=== PATIENT | male | born 1995 | race Caucasian/White ===

== ENCOUNTER 2017-07-02 03:24 | Emergency (ER) | payer OTHER ==
[~2017-07-02] VITALS: Ht 177.8 cm; Wt 55.0 kg
[~2017-07-02 03:24] MED LIST: ERYT400T4 PO; Z.0.NO CURRENT MEDS
[2017-07-02 03:37] VITALS: BP 137/92; PULSE 90; RESP 16; TEMP 98.3; O2SAT 100
[2017-07-02 04:44] LABS: AUTOMATED NEUTROPHIL # 6.8 TH/MM3 (1.8-7.7); BASOPHIL # 0.1 TH/MM3 (0-0.2); BASOPHIL % 0.6 % (0.0-2.0); EOSINOPHIL # 0.1 TH/MM3 (0-0.4); EOSINOPHIL % 1.2 % (0.0-4.0); HEMATOCRIT 42.3 % (39.0-51.0); HEMO FLAGS DIFF FINAL; LYMPH % 25.4 % (9.0-44.0); LYMPHOCYTE # 2.7 TH/MM3 (1.0-4.8); MEAN CELL VOLUME 83.8 FL (80.0-100.0); MEAN CORPUSCULAR HEMOGLOBIN 28.5 PG (27.0-34.0); MONO % 8.1 % (0.0-8.0); NEUT % 64.7 % (16.0-70.0); PLATELET COUNT 234 TH/MM3 (150-450); RED BLOOD COUNT 5.04 MIL/MM3 (4.50-5.90); RED CELL DISTRIBUTION WIDTH 12.6 % (11.6-17.2); WHITE BLOOD COUNT 10.5 TH/MM3 (4.0-11.0)
[2017-07-02 05:12] LABS: ANION GAP 9 MEQ/L (5-15)
[2017-07-02 05:16] LABS: ALT (GPT) 26 U/L (12-78); AST (GOT) 23 U/L (15-37); BICARBONATE 26.8 MEQ/L (21.0-32.0); CHLORIDE 104 MEQ/L (98-107); GLOMERULAR FILTRATION RATE 88 ML/MIN (>89); POTASSIUM 3.5 MEQ/L (3.5-5.1); SODIUM (NA) 140 MEQ/L (136-145)
[2017-07-02 05:17] LABS: ACETAMINOPHEN LESS THAN 2.0 MCG/ML (10.0-30.0); ALCOHOL LESS THAN 3 MG/DL (0-5); ALKALINE PHOSPHATASE 61 U/L (45-117); BLOOD UREA NITROGEN 16 MG/DL (7-18); TOTAL BILIRUBIN ADULT 0.6 MG/DL (0.2-1.0)
[2017-07-02 05:39] VITALS: BP 110/73; PULSE 72; RESP 16; TEMP 98.2; O2SAT 100
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
[2017-07-02 09:21] VITALS: BP 119/72; PULSE 76; RESP 14; O2SAT 99
[2017-07-02 15:02] VITALS: BP 119/72; PULSE 76; RESP 14; O2SAT 99
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
== END 2017-07-02 19:48 | disposition home or self-care (01) ==
LOC: NEDAMB 03:24 → NEPJ 19:48
DX: F43.25 Adjustment disorder with mixed disturbance of emotions and conduct (principal); F84.0 Autistic disorder; F39 Unspecified mood [affective] disorder
CPT/HCPCS: 80053; 80307; 85025; 99284